=== PATIENT | male | born 1995 ===

== ENCOUNTER 2017-01-14 15:13 | Emergency (ER) | payer MEDICAID, OTHER ==
[2017-01-14 15:22] VITALS: BMI 24.0
[2017-01-14 15:26] VITALS: BP 125/63; PULSE 51; RESP 18; TEMP 98.4; O2SAT 98
--- NOTE | 2017-01-14 15:43 | ED PDOC ---
Arrival/HPI - General Chief Complaint: Back Pain Time Seen by Provider: 01/14/17 15:39 Historian: Patient - History of Present Illness Narrative History of Present Illness (Text): 01/14/17 15:40 This 21 yo male presents to this ED c/o right lower back pain x 2-3 months. Patient stated pain started after lifting boxes. Patient has seen a chriropractor, who ordered LS x-rays. X-rays were negative for fracture or dislocation as per patient. Patient was recommended to have an out -pt MRI of lower back. Patient has continually exercising and playing sport despite lower back pain. Patient denies weakness, paresthesias, saddle anesthesias, / GI incontinence, urinary retention, urinary symptoms, STD exposure, testicular pain, dizziness, abdominal pain, cp, sob, or abnormal gait. Time/Duration: Other (2-3 months) Symptom Course: Unchanged Quality: Aching Context: School Past Medical History - Provider Review Nursing Documentation Reviewed: Yes - Past History Past History: No Previous - Infectious Disease Hx of Infectious Diseases: None - Psychiatric Hx Depression: No Hx Emotional Abuse: No Hx Physical Abuse: No Hx Substance Use: No - Past Surgical History Past Surgical History: No Previous - Anesthesia Hx Anesthesia: No - Suicidal Assessment Feels Threatened In Home Enviroment: No Family/Social History - Physician Review Nursing Documentation Reviewed: Yes Family/Social History: No Known Family HX Smoking Status: Never Smoked Hx Alcohol Use: No Hx Substance Use: No Hx Substance Use Treatment: No Allergies/Home Meds Allergies/Adverse Reactions: Allergies No Known Allergies Allergy (Verified 12/30/13 19:08) Review of Systems - Review of Systems Constitutional: Normal. absent: Fatigue, Weight Change, Fevers Eyes: Normal ENT: Normal Respiratory: Normal. absent: SOB, Cough, Sputum, Wheezing Cardiovascular: Normal Gastrointestinal: Normal. absent: Abdominal Pain, Nausea, Vomiting Genitourinary Male: Normal. absent: Dysuria, Frequency, Hematuria Musculoskeletal: Back Pain Skin: Normal. absent: Rash Neurological: Normal. absent: Headache, Dizziness, Focal Weakness, Gait Changes , Speech Changes, Facial Droop, Disequilibrium, Seizure Endocrine: Normal Hemo/Lymphatic: Normal Psychiatric: Normal Physical Exam Vital Signs Temp Pulse Resp BP Pulse Ox 01/14/17 15:25 98.4 F 51 L 18 125/63 98 Temperature: Afebrile Blood Pressure: Normal Pulse: Regular Respiratory Rate: Normal Appearance: Positive for: Well-Appearing, Non-Toxic, Comfortable Pain Distress: None Mental Status: Positive for: Alert and Oriented X 3 - Systems Exam Head: Present: Atraumatic, Normocephalic Pupils: Present: PERRL Extroacular Muscles: Present: EOMI Conjunctiva: Present: Normal Mouth: Present: Moist Mucous Membranes Neck: Present: Normal Range of Motion Respiratory/Chest: Present: Clear to Auscultation, Good Air Exchange. No: Respiratory Distress, Accessory Muscle Use Cardiovascular: Present: Regular Rate and Rhythm, Normal S1, S2. No: Murmurs Abdomen: Present: Normal Bowel Sounds. No: Tenderness, Distention, Peritoneal Signs Back: Present: Normal Inspection, Paraspinal Tenderness (Mild left paravertebral tenderness. No vertebral point tenderness, No vertebral step off.). No: CVA Tenderness, Midline Tenderness Upper Extremity: Present: Normal Inspection, Normal ROM, NORMAL PULSES, Neurovascularly Intact, Capillary Refill < 2s. No: Cyanosis, Edema Lower Extremity: Present: Normal Inspection, NORMAL PULSES, Normal ROM, Neurovascularly Intact, Capillary Refill < 2 s. No: Edema, CALF TENDERNESS Neurological: Present: GCS=15, CN II-XII Intact, Speech Normal, Motor Func Grossly Intact, Normal Sensory Function, Normal Cerebellar Funct, Norm Deep Tendon Reflexes, Gait Normal, Memory Normal, Other (No neuro focal deficits) Skin: Present: Warm, Dry, Normal Color. No: Rashes Psychiatric: Present: Alert, Oriented x 3, Normal Insight, Normal Concentration Medical Decision Making ED Course and Treatment: 01/14/17 15:43 Re-evaluation. Patient feels better. Discussed results and plan with patient who expresses understanding. All questions answered and there is agreement with the plan to discharge home with instructions. Patient stable for discharge. Return if symptoms persist or worsen. No neuro focal deficits. Patient is able to move lower back normally. Denies /GI incontinence I will recommend Toradol IM, adn muscle relaxer. Patient has normal gait. no rash on lower back. Re-evaluation Time: 15:43 Reassessment Condition: Re-examined, Improved Disposition/Present on Arrival - Present on Arrival Any Indicators Present on Arrival: No History of DVT/PE: No History of Uncontrolled Diabetes: No Urinary Catheter: No History of Decub. Ulcer: No History Surgical Site Infection Following: None - Disposition Have Diagnosis and Disposition been Completed?: Yes Diagnosis: Back pain Disposition: HOME/ ROUTINE Disposition Time: 15:46 Patient Plan: Discharge Patient Problems: Current Active Problems Problem Status Onset Back pain Acute Condition: GOOD Discharge Instructions (ExitCare): Back Pain (ED) Additional Instructions: Call private orthopedic doctor for follow up visit in 1-2 days. Take medication as instructed. Avoid heavy lifting, exercise, gym, sports for at least 2 week. Return to emergency if symptoms worsen. Prescriptions: Famotidine [Pepcid] 40 mg PO DAILY #10 tablet Methocarbamol [Robaxin-750] 750 mg PO TID #30 tablet Naproxen 500 mg PO BID #20 tab Referrals: Kortney Grajeda MD [Staff Provider] - Follow up with primary Forms: SCHOOL NOTE
== END 2017-01-14 16:00 | disposition home or self-care (01) ==
LOC: ED 15:13
DX: M54.9 Dorsalgia, unspecified (principal)

== ENCOUNTER 2017-12-25 16:33 | Emergency (ER) | payer BC, MEDICAID ==
[2017-12-25 16:35] VITALS: BMI 24.0
[2017-12-25 16:56] VITALS: RESP 16; TEMP 99; O2SAT 100
[2017-12-25] MEDS ORDERED: cefTRIAXone (Rocephin) 250 mg Inj IM STA (17:19)
--- NOTE | 2017-12-25 17:28 | ED PDOC ---
Arrival/HPI - General Chief Complaint: Male Genitourinary Time Seen by Provider: 12/25/17 17:19 Historian: Patient - History of Present Illness Narrative History of Present Illness (Text): 12/25/17 17:22 22 y/o male, no significant pmh, nkda, c/o request to be prophylatically treat for gonorrhea and chlamydia as he has been call that his sexual partner called him today she has gonorrhea. Pt. stated that he has no penile discharge, no urinary symptoms, no testicular pain, no rash, no weight loss or coughing, no headache or neck pain, no other medical or psychological complaints. Past Medical History - Provider Review Nursing Documentation Reviewed: Yes - Past History Past History: No Previous - Infectious Disease Hx of Infectious Diseases: None - Psychiatric Hx Psychophysiologic Disorder: No Hx Substance Use: No - Past Surgical History Past Surgical History: No Previous - Anesthesia Hx Anesthesia: No - Suicidal Assessment Feels Threatened In Home Enviroment: No Family/Social History - Physician Review Nursing Documentation Reviewed: Yes Family/Social History: Unknown Family HX Smoking Status: Never Smoked Hx Alcohol Use: No Hx Substance Use: No Hx Substance Use Treatment: No Allergies/Home Meds Allergies/Adverse Reactions: Allergies No Known Allergies Allergy (Verified 12/30/13 19:08) Home Medications: Home Meds Medication Instructions Recorded Confirmed No Known Home Med 12/25/17 12/25/17 Review of Systems - Review of Systems Constitutional: absent: Fatigue, Fevers Eyes: absent: Vision Changes ENT: absent: Hearing Changes Respiratory: absent: SOB, Cough Cardiovascular: absent: Chest Pain Gastrointestinal: absent: Abdominal Pain, Nausea, Vomiting Skin: absent: Rash, Pruritis Neurological: absent: Headache, Dizziness Psychiatric: absent: Anxiety, Depression, Suicidal Ideation Physical Exam Vital Signs Reviewed: Yes Vital Signs Temp Pulse Resp BP Pulse Ox 12/25/17 16:51 99.0 F 57 L 16 145/88 100 Temperature: Afebrile Blood Pressure: Normal Pulse: Bradycardic Respiratory Rate: Normal Appearance: Positive for: Well-Appearing, Non-Toxic, Comfortable Pain Distress: None Mental Status: Positive for: Alert and Oriented X 3 - Systems Exam Head: Present: Atraumatic, Normocephalic Pupils: Present: PERRL Extroacular Muscles: Present: EOMI Conjunctiva: Present: Normal Mouth: Present: Moist Mucous Membranes Neck: Present: Normal Range of Motion Respiratory/Chest: Present: Clear to Auscultation, Good Air Exchange. No: Respiratory Distress, Accessory Muscle Use Cardiovascular: Present: Regular Rate and Rhythm, Normal S1, S2. No: Murmurs Abdomen: No: Tenderness, Distention, Peritoneal Signs Genitourinary Male: Present: Normal External Genitalia, Circumcised Penis. No: Penile Discharge, Testicle Tenderness, Penile Swelling, Hernias, Testicle Swelling Back: Present: Normal Inspection Upper Extremity: Present: Normal Inspection. No: Cyanosis, Edema Lower Extremity: Present: Normal Inspection. No: Edema Neurological: Present: GCS=15, CN II-XII Intact, Speech Normal Skin: Present: Warm, Dry, Normal Color. No: Rashes Psychiatric: Present: Alert, Oriented x 3, Normal Insight, Normal Concentration Medical Decision Making ED Course and Treatment: 12/25/17 17:24 -gc/chlamydiat test ordered -Rocephine and azithromycin ordered for him for prophyatic treatment for possible std exposure. -Pt. refused HIV test -Discharge home with education on follow up with your own pmd within 2 days, notify all your sexual partners for STD testing if needed, use condom in the future, follow up with your own pmd within 2 days, return to the ER for any new or worsening signs or symptoms. - PA / TEST ENGINEER [employer]IPMENT / Resident Statement /DO has reviewed & agrees with the documentation as recorded. Disposition/Present on Arrival - Present on Arrival Any Indicators Present on Arrival: No History of DVT/PE: No History of Uncontrolled Diabetes: No Urinary Catheter: No History of Decub. Ulcer: No History Surgical Site Infection Following: None - Disposition Have Diagnosis and Disposition been Completed?: Yes Diagnosis: STD exposure Disposition Time: 17:29 Patient Plan: Discharge Condition: IMPROVED Additional Instructions: -Discharge home with education on follow up with your own pmd within 2 days, notify all your sexual partners for STD testing if needed, use condom in the future, follow up with your own pmd within 2 days, return to the ER for any new or worsening signs or symptoms. Referrals: [facility] [Outside] - Follow up with primary Forms: WORK NOTE
[2017-12-25 18:16] VITALS: BP 140/87; PULSE 60
== END 2017-12-25 18:14 | disposition home or self-care (01) ==
LOC: ED 16:33
DX: Z20.2 Contact with and (suspected) exposure to infections with a predominantly sexual mode of transmission (principal)
CPT/HCPCS: 87491; 87591; 96372; 99283; J0696

== ENCOUNTER 2018-03-20 11:28 | Emergency (ER) | payer BC, MEDICAID ==
[2018-03-20 11:40] VITALS: RESP 18; O2SAT 100
[2018-03-20 11:41] VITALS: BMI 24.8
--- NOTE | 2018-03-20 11:55 | ED PDOC ---
Arrival/HPI - General Historian: Patient - History of Present Illness Time/Duration: Other (1 month) Symptom Onset: Gradual Symptom Course: Worsening <Wanda Van - Last Filed: 03/20/18 22:19> <Osbaldo Sheriff - Last Filed: 03/23/18 18:22> - General Chief Complaint: Upper Extremity Problem/Injury Time Seen by Provider: 03/20/18 11:32 - History of Present Illness Narrative History of Present Illness (Text): 03/20/18 11:50 A 22 year old male, with no significant past medical history, presents to the emergency department complaining of right shoulder pain for 1 month. 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 Today pain has become worse and patient decided to come to the ER for evaluation. He mentions pain worsens when raising arm above his head. States he tried using Ice /Heat packs but has had no relief. Denies taking any medications for pain. Patient denies any trauma, numbness/tingling/weakness, chest pain, shortness of breath, back pain, or any other complaints at this time. PMD: Dr. Joe Lechuga (Wanda Van) Past Medical History - Provider Review Nursing Documentation Reviewed: Yes - Past History Past History: No Previous - Infectious Disease Hx of Infectious Diseases: None - Psychiatric Hx Psychophysiologic Disorder: No Hx Substance Use: No - Past Surgical History Past Surgical History: No Previous - Anesthesia Hx Anesthesia: No - Suicidal Assessment Feels Threatened In Home Enviroment: No <Wanda Van - Last Filed: 03/20/18 22:19> Family/Social History - Physician Review Nursing Documentation Reviewed: Yes Family/Social History: No Known Family HX Smoking Status: Never Smoked Hx Alcohol Use: No Hx Substance Use: No Hx Substance Use Treatment: No <Wanda Van - Last Filed: 03/20/18 22:19> Allergies/Home Meds <Wanda Van - Last Filed: 03/20/18 22:19> <Osbaldo Sheriff - Last Filed: 03/23/18 18:22> Allergies/Adverse Reactions: Allergies No Known Allergies Allergy (Verified 03/20/18 11:47) Review of Systems - Physician Review All systems were reviewed & negative as marked: Yes - Review of Systems Constitutional: absent: Fatigue, Fevers Respiratory: absent: SOB, Cough Cardiovascular: absent: Chest Pain Gastrointestinal: absent: Abdominal Pain, Nausea, Vomiting Musculoskeletal: Other (right shoulder pain). absent: Back Pain Skin: absent: Rash, Pruritis Neurological: absent: Headache, Dizziness, Other (no numbness/tingling/weakness) Psychiatric: absent: Anxiety, Depression <Wanda Van - Last Filed: 03/20/18 22:19> Physical Exam Vital Signs Reviewed: Yes Temperature: Afebrile Blood Pressure: Normal Pulse: Regular Respiratory Rate: Normal Appearance: Positive for: Well-Appearing Pain Distress: None Mental Status: Positive for: Alert and Oriented X 3 - Systems Exam Head: Present: Atraumatic, Normocephalic Pupils: Present: PERRL Extroacular Muscles: Present: EOMI Conjunctiva: Present: Normal Neck: Present: Normal Range of Motion Respiratory/Chest: Present: Clear to Auscultation, Good Air Exchange. No: Respiratory Distress, Accessory Muscle Use Cardiovascular: Present: Regular Rate and Rhythm, Normal S1, S2. No: Murmurs Abdomen: No: Tenderness, Distention, Peritoneal Signs Upper Extremity: Present: Normal Inspection, Normal ROM (full ROM to right shoulder), NORMAL PULSES, Tenderness (anterior aspect of the right shoulder ), Neurovascularly Intact, Capillary Refill < 2s. No: Cyanosis, Edema, Erythema, Other (no ecchymosis) Lower Extremity: Present: Normal Inspection. No: Edema Neurological: Present: GCS=15, CN II-XII Intact, Speech Normal Skin: Present: Warm, Dry, Normal Color. No: Rashes Psychiatric: Present: Alert, Oriented x 3, Normal Insight, Normal Concentration <Wanda Van T - Last Filed: 03/20/18 22:19> Vital Signs Temp Pulse Resp BP Pulse Ox 03/20/18 12:46 98.2 F 61 18 128/64 100 03/20/18 12:44 55 L 18 138/64 100 03/20/18 11:39 98.1 F 52 L 18 142/65 100 Medical Decision Making Reassessment Condition: Re-examined, Improved <Wanda Van - Last Filed: 03/20/18 22:19> <Osbaldo Sheriff - Last Filed: 03/23/18 18:22> ED Course and Treatment: 03/20/18 11:55 Impression: 22 year old male with right shoulder pain. Physical exam shows tenderness to anterior aspect of right shoulder, full ROM to right shoulder, no edema/erythema/ecchymosis, distal pulses intact, sensation neurovascularly intact, cap refill < 2; no other acute findings on examination. Plan: -- Right Shoulder X-Ray -- Toradol -- Reassess and disposition Progress Notes: xray of right shoulder; FINDINGS: BONES: Normal. No fracture. JOINTS: Normal. Glenohumeral and acromioclavicular joints preserved. No osteoarthritis. SOFT TISSUES: Normal. OTHER FINDINGS: None. IMPRESSION: Normal radiographs of the right shoulder. 03/20/18 12:32 pt reassessment; pt feeling better with medications; discussed all results in depth with patient. advised rest, ice, compression. advised f/u with orthopedist within the next 2 days. i advised the patient that although the xrays show no fracture; there is still a possibility for ligamentous or tendon injury the patient must see the orthopedist for further evaluation. Patient verbalizes understanding of discharge instructions and need for immediate followup. all aspects of this case were discussed the attending of record. impression; shoulder pain Motrin every 6 hours as needed for pain Flexeril one tablet every 8 hours as needed for muscle spasms: May cause drowsiness Followup with the orthopedist within the next 2 days Followup with primary care physician within the next 2 days Return if symptoms worsen persist or if new symptoms develop (Wanda Van) - RAD Interpretation Radiology Orders: 03/20/18 11:48 SHOULDER RIGHT [RAD] Stat - Medication Orders Current Medication Orders: Discontinued Medications Ketorolac Tromethamine (Toradol) 60 mg IM STAT STA Stop: 03/20/18 11:49 Last Admin: 03/20/18 11:59 Dose: 60 mg MAR Pain Assessment Document 03/20/18 11:59 LA (Rec: 03/20/18 12:00 LA [id number]) Pain Reassessment Is this a pain reassessment? Yes Sleep Is patient sleeping during reassessment? No Presence of Pain Presence of Pain Yes Pain Scale Used Pain Scale Used Numeric Location Left, Right or Bilateral Right Pain Location Body Site Shoulder Description Intensity of Pain at present 7 IM Administration Charges Document 03/20/18 11:59 LA (Rec: 03/20/18 12:00 LA [id number]) Injection Site MAR Injection Site Right Gluteus Randy Charges for Administration # of IM Administrations 1 - Scribe Statement The provider has reviewed the documentation as recorded by the Scribe <Wanda Van - Last Filed: 03/20/18 22:19> - PA / CAMPAIGN MARKETING SPECIALIST / Resident Statement / has reviewed & agrees with the documentation as recorded. / has examined the patient and agrees with the treatment plan. <Osbaldo Sheriff - Last Filed: 03/23/18 18:22> - Scribe Statement Gloria Lechuga Provider Scribe Attestation: All medical record entries made by the Scribe were at my direction and personally dictated by me. I have reviewed the chart and agree that the record accurately reflects my personal performance of the history, physical exam, medical decision making, and the department course for this patient. I have also personally directed, reviewed, and agree with the discharge instructions and disposition. (Wanda Van) Disposition/Present on Arrival - Present on Arrival Any Indicators Present on Arrival: No History of DVT/PE: No History of Uncontrolled Diabetes: No Urinary Catheter: No History of Decub. Ulcer: No History Surgical Site Infection Following: None - Disposition Have Diagnosis and Disposition been Completed?: Yes Disposition Time: 12:15 Patient Plan: Discharge <Wanda Van - Last Filed: 03/20/18 22:19> <Osbaldo Sheriff - Last Filed: 03/23/18 18:22> - Disposition Diagnosis: Shoulder pain Disposition: HOME/ ROUTINE Condition: GOOD Discharge Instructions (ExitCare): Shoulder Pain (DC) Additional Instructions: Motrin every 6 hours as needed for pain Flexeril one tablet every 8 hours as needed for muscle spasms: May cause drowsiness Followup with the orthopedist within the next 2 days Followup with primary care physician within the next 2 days Return if symptoms worsen persist or if new symptoms develop Prescriptions: Ibuprofen [Motrin] 600 mg PO Q6H PRN #20 tab PRN Reason: pain/fever reduction Referrals: Joe Lechuga MD [Primary Care Provider] - Follow up with primary Kortney Grajeda MD [Staff Provider] - Follow up with primary [facility] [place] [Outside] - Follow up with primary Forms: [employer] (Faroese), WORK NOTE
--- NOTE | 2018-03-20 12:29 | RAD ---
Date of service: 03/20/2018 PROCEDURE: Radiographs of the Right Shoulder HISTORY: shoulder pain COMPARISON: No prior. FINDINGS: BONES: Normal. No fracture. JOINTS: Normal. Glenohumeral and acromioclavicular joints preserved. No osteoarthritis. SOFT TISSUES: Normal. OTHER FINDINGS: None. IMPRESSION: Normal radiographs of the right shoulder.
[2018-03-20 12:46] VITALS: BP 128/64; PULSE 61; TEMP 98.2
== END 2018-03-20 12:54 | disposition home or self-care (01) ==
LOC: ED 11:28
DX: M25.511 Pain in right shoulder (principal)
CPT/HCPCS: 73030; 96372; 99284; J1885